=== PATIENT | male | born 1955 | race Caucasian/White ===

== ENCOUNTER → 2016-04-16 | Day surgery (SDC) | payer OTHER ==
[2016-04-16 11:47] LABS: HCT 45.4 % (42.0-52.0); HGB 16.2 g/dl (13.2-18.0); MCH 31.3 pg (25.0-31.0); MCHC 35.7 g/dL (32.0-36.0); MCV 87.6 fL (78.0-100.0); MPV 10.4 fL (6.0-9.5); RBC 5.18 M/uL (4.70-6.00); RDW 13.8 % (11.5-14.0); WBC 6.1 K/uL (4.0-10.5)
[2016-04-16 11:58] LABS: ALBUMIN 4.7 g/dL (3.5-5.0); POTASSIUM 4.3 mmol/L (3.5-5.1); TOTAL PROTEIN 7.7 g/dL (6.4-8.3)
== END | disposition home or self-care (01) ==
LOC: FAS 11:06
PROVIDERS: Surgery
DX: Z12.11 Encounter for screening for malignant neoplasm of colon (principal); K64.1 Second degree hemorrhoids; K75.81 Nonalcoholic steatohepatitis (NASH); F12.90 Cannabis use, unspecified, uncomplicated; E78.00 Pure hypercholesterolemia, unspecified; I10 Essential (primary) hypertension; Z90.49 Acquired absence of other specified parts of digestive tract; Z98.890 Other specified postprocedural states; Z82.49 Family history of ischemic heart disease and other diseases of the circulatory system; Z87.891 Personal history of nicotine dependence; Z79.1 Long term (current) use of non-steroidal anti-inflammatories (NSAID); Z79.899 Other long term (current) drug therapy
CPT/HCPCS: 36415; 80053; J1100; J2704

== ENCOUNTER → 2021-05-19 | Day surgery (SDC) | payer OTHER ==
[~2021-05-19] VITALS: Ht 180.3 cm; Wt 102.2 kg
[~2021-05-19] MED LIST: AMLODIPINE BES2.5 MG PO; COLESTIPOL HCL1 GM PO; COZAAR100 MG PO; HYDROCHLOROTH12.5 MG PO; LIPITOR 10MG TA10 MG PO; LOSARTAN-HCTZ1 EACH PO; LYRICA 150MG C150 MG PO; NORCO 5-325 TA1 EACH PO; NORVASC5 MG PO; RESTASIS MULTI5.5 ML OT
[2021-05-19 08:48] LABS: HCT 44.2 % (42.0-52.0); HGB 15.5 g/dl (13.2-18.0); MCH 31.2 pg (25.0-31.0); MCHC 35.1 g/dL (32.0-36.0); MCV 88.9 fL (78.0-100.0); RBC 4.97 M/uL (4.70-6.00); RDW 13.5 % (11.5-14.0); WBC 6.2 K/uL (4.0-10.5)
[2021-05-19 09:04] LABS: ALBUMIN 3.8 g/dL (3.4-5.0); BILIRUBIN - TOTAL 0.5 mg/dL (0.2-1.0); BUN/CREAT RATIO (CALC) 12.9 RATIO; CREATININE 0.93 mg/dL (0.67-1.17); GLOBULIN (CALCULATION) 3.7 g/dL; POTASSIUM 4.7 mmol/L (3.5-5.1); TOTAL PROTEIN 7.5 g/dL (6.4-8.2)
== END | disposition home or self-care (01) ==
LOC: FAS 08:18
PROVIDERS: Surgery
DX: K29.60 Other gastritis without bleeding (principal); R19.7 Diarrhea, unspecified; E78.5 Hyperlipidemia, unspecified; I10 Essential (primary) hypertension; F12.90 Cannabis use, unspecified, uncomplicated; Z90.49 Acquired absence of other specified parts of digestive tract
CPT/HCPCS: 36415; 80053; J2704; J7120